=== PATIENT | female | born 1995 ===

== ENCOUNTER 2016-10-01 12:54 | Emergency (ER) | payer BC ==
[~2016-10-01] VITALS: Ht 170.2 cm; Wt 59.1 kg
[2016-10-01 12:55] VITALS: BP 126/61; PULSE 78; TEMP 98.5
[2016-10-01] MEDS ORDERED: PROZAC 20MG20 MG PO (12:58)
[2016-10-01] MEDS ORDERED: FLEXERIL 1010 MG/TAB PO (13:25)
== END 2016-10-01 13:33 | disposition home or self-care (01) ==
LOC: COL.ER 12:54
DX: S16.1XXA Strain of muscle, fascia and tendon at neck level, initial encounter (principal); F41.9 Anxiety disorder, unspecified; V43.62XA Car passenger injured in collision with other type car in traffic accident, initial encounter